=== PATIENT | female | born 1990 | race Two or more races ===

== ENCOUNTER 2019-08-04 10:53 | Observation (INO) | payer BC ==
[~2019-08-04] VITALS: Ht 170.2 cm; Wt 112.0 kg
[2019-08-04] MEDS ORDERED: PREN-96 PO (12:23)
[2019-08-04] MEDS ORDERED: ASPI-231 PO (12:24)
[2019-08-04 13:44] LABS: Basophils # (auto) 0.2 uL; Basophils % (auto) 1.4 % (0.0-2.0); Eosinophils # (auto) 0 uL; Eosinophils % (auto) 0.2 % (0.0-7.0); Hematocrit 35.5 % (36.0-46.0); Hemoglobin 11.9 g/dL (12.2-16.2); Lymphocytes # (auto) 1.3 uL; Lymphocytes % (auto) 11.5 % (10.0-50.0); Mean Corpuscular Hemoglobin 31.2 pg (28.0-32.0); Mean Corpuscular Hgb Conc. 33.5 g/dL (32.0-36.0); Monocytes # (auto) 0.5 uL; Monocytes % (auto) 4.4 % (0.0-12.0); Neutrophils # (auto) 9.4 uL; Neutrophils % (auto) 82.5 % (37.0-80.0); Platelet Count (auto) 252 10^3/uL (140-450); Red Blood Cells 3.81 10^6/uL (4.0-5.20); Red Cell Distribution Width 12.8 % (11.8-14.3); White Blood Cell 11.4 10^3/uL (4.4-10.8)
[2019-08-04 13:47] LABS: Urine Bacteria FEW /hpf (None Seen); Urine Blood Negative /uL (Negative); Urine Mucus FEW (None Seen); Urine Specific Gravity 1.017 (1.001-1.035); Urine WBC 1 /hpf (0 - 5)
[2019-08-04 14:00] LABS: INR < 0.93 (0.9-1.15); Partial Thromboplastin Time 24.6 sec (23.64-32.05)
[2019-08-04 14:08] LABS: Albumin 2.7 g/dL (3.4-5.0); Calcium 9.3 mg/dL (8.5-10.1); Potassium 3.8 mmol/L (3.5-5.1); Uric Acid 4.4 mg/dL (2.6-6.0)
[2019-08-04 14:12] LABS: BUN/Creatinine Ratio 17.4; Bilirubin, Total 0.1 mg/dL (0.2-1.0); Total Protein 7.1 g/dL (6.4-8.2)
== END 2019-08-04 14:50 | disposition home or self-care (01) | DRG 833 ==
LOC: LDRP 10:53
PROVIDERS: ADMIT Obstetrics & Gynecology; ATTEND Obstetrics & Gynecology
DX: O36.5930 Maternal care for other known or suspected poor fetal growth, third trimester, not applicable or unspecified (principal); O13.3 Gestational [pregnancy-induced] hypertension without significant proteinuria, third trimester; Z3A.35 35 weeks gestation of pregnancy
CPT/HCPCS: 36415; 59025; 76818; 80053; 81001; 81002; 84550; 85025; 85610; 85730; G0378

== ENCOUNTER 2019-08-08 09:23 | Observation (INO) | payer BC ==
[~2019-08-08 09:23] MED LIST: ASPI-231 PO; PREN-96 PO
[2019-08-08 15:35] LABS: Protein, Urine 13.1 mg/dL (0.0-11.9)
== END 2019-08-08 15:16 | disposition home or self-care (01) | DRG 951 ==
LOC: LDRP 13:18
PROVIDERS: ADMIT Specialist; ATTEND Specialist
DX: Z34.93 Encounter for supervision of normal pregnancy, unspecified, third trimester (principal); Z3A.35 35 weeks gestation of pregnancy
CPT/HCPCS: 59025; 76818; 81002; 84156; G0378

== ENCOUNTER 2019-08-12 14:51 | Observation (INO) | payer BC | END 2019-08-12 16:09 | disposition home or self-care (01) | DRG 833 | LOC: LDRP 14:51 | PROVIDERS: ADMIT Specialist; ATTEND Specialist | DX: O36.8330 Maternal care for abnormalities of the fetal heart rate or rhythm, third trimester, not applicable or unspecified (principal); Z3A.36 36 weeks gestation of pregnancy | CPT/HCPCS: 59025; 76818; 81002; G0378 ==

== ENCOUNTER 2019-08-16 14:25 | Observation (INO) | payer BC | END 2019-08-16 15:20 | disposition home or self-care (01) | DRG 833 | LOC: LDRP 14:25 | PROVIDERS: ADMIT Obstetrics & Gynecology; ATTEND Obstetrics & Gynecology | DX: O36.5993 Maternal care for other known or suspected poor fetal growth, unspecified trimester, fetus 3 (principal); O13.3 Gestational [pregnancy-induced] hypertension without significant proteinuria, third trimester; Z3A.37 37 weeks gestation of pregnancy | CPT/HCPCS: 59025; 76818; 81002; G0378 ==

== ENCOUNTER 2019-08-19 14:05 | Observation (INO) | payer BC ==
[~2019-08-19] VITALS: Ht 170.2 cm; Wt 114.8 kg
[2019-08-19] MEDS ORDERED: LABETALOL HCL 200 MG TAB PO ONE ×2 (15:00→15:30)
[2019-08-19 15:47] LABS: Basophils # (auto) 0 uL; Basophils % (auto) 0.1 % (0.0-2.0); Eosinophils # (auto) 0 uL; Eosinophils % (auto) 0.3 % (0.0-7.0); Hematocrit 36.3 % (36.0-46.0); Hemoglobin 12.4 g/dL (12.2-16.2); Lymphocytes # (auto) 1.6 uL; Lymphocytes % (auto) 15.4 % (10.0-50.0); Mean Corpuscular Hemoglobin 31.8 pg (28.0-32.0); Mean Corpuscular Hgb Conc. 34.1 g/dL (32.0-36.0); Mean Corpuscular Volume 93.3 fL (80.0-100.0); Monocytes # (auto) 0.6 uL; Monocytes % (auto) 5.9 % (0.0-12.0); Neutrophils # (auto) 8.3 uL; Neutrophils % (auto) 78.3 % (37.0-80.0); Nucleated Red Blood Cells % 0.1 %; Platelet Count (auto) 243 10^3/uL (140-450); Red Blood Cells 3.89 10^6/uL (4.0-5.20); Red Cell Distribution Width 12.6 % (11.8-14.3); White Blood Cell 10.5 10^3/uL (4.4-10.8)
[2019-08-19 15:54] LABS: Urine Bacteria MOD /hpf (None Seen); Urine Blood Negative /uL (Negative); Urine Mucus FEW (None Seen); Urine Specific Gravity 1.007 (1.001-1.035); Urine WBC 6 /hpf (0 - 5)
[2019-08-19 16:04] LABS: Albumin 2.6 g/dL (3.4-5.0); BUN/Creatinine Ratio 13.7; Potassium 4.1 mmol/L (3.5-5.1)
[2019-08-19 16:07] LABS: Bilirubin, Total 0.2 mg/dL (0.2-1.0); Total Protein 6.9 g/dL (6.4-8.2)
[2019-08-19 16:34] LABS: INR < 0.93 (0.9-1.15); Partial Thromboplastin Time 26.2 sec (23.64-32.05)
== END 2019-08-19 16:52 | disposition home or self-care (01) | DRG 833 ==
LOC: LDRP 14:05
PROVIDERS: ADMIT Obstetrics & Gynecology; ATTEND Obstetrics & Gynecology
DX: O13.3 Gestational [pregnancy-induced] hypertension without significant proteinuria, third trimester (principal); O36.5931 Maternal care for other known or suspected poor fetal growth, third trimester, fetus 1; Z3A.37 37 weeks gestation of pregnancy
CPT/HCPCS: 36415; 76818; 80053; 81001; 84550; 85025; 85379; 85610; 85730; G0378

== ENCOUNTER 2019-08-22 15:40 | Inpatient (IN) | payer BC ==
[~2019-08-22] VITALS: Ht 30.5 cm; Wt 0.9 kg
[2019-08-22] MEDS ORDERED: LABETALOL HCL 200 MG TAB PO ONE (16:00)
[2019-08-22 16:41] LABS: Urine Bacteria MOD /hpf (None Seen); Urine Blood Negative /uL (Negative); Urine Specific Gravity 1.006 (1.001-1.035); Urine WBC 8 /hpf (0 - 5)
[2019-08-22 16:48] LABS: Basophils # (auto) 0 uL; Basophils % (auto) 0.2 % (0.0-2.0); Eosinophils # (auto) 0.1 uL; Eosinophils % (auto) 0.5 % (0.0-7.0); Hematocrit 35.1 % (36.0-46.0); Hemoglobin 11.9 g/dL (12.2-16.2); Lymphocytes # (auto) 1.6 uL; Lymphocytes % (auto) 13.1 % (10.0-50.0); Mean Corpuscular Hemoglobin 31.6 pg (28.0-32.0); Monocytes # (auto) 0.5 uL; Monocytes % (auto) 3.9 % (0.0-12.0); Neutrophils % (auto) 82.3 % (37.0-80.0); Nucleated Red Blood Cells % 0.1 %; Platelet Count (auto) 232 10^3/uL (140-450); Red Blood Cells 3.78 10^6/uL (4.0-5.20); White Blood Cell 12.1 10^3/uL (4.4-10.8)
[2019-08-22 16:57] LABS: Albumin 2.5 g/dL (3.4-5.0); Calcium 8.6 mg/dL (8.5-10.1); Potassium 3.9 mmol/L (3.5-5.1); Uric Acid 4.4 mg/dL (2.6-6.0)
[2019-08-22 17:00] LABS: BUN/Creatinine Ratio 15.1; Bilirubin, Total 0.1 mg/dL (0.2-1.0)
[2019-08-22 17:27] LABS: INR < 0.93 (0.9-1.15); Partial Thromboplastin Time 26.2 sec (23.64-32.05)
[2019-08-22] MEDS ORDERED: LACTATED RINGER'S 1,000 ML IV SCH (17:33)
[2019-08-22] MEDS ORDERED: LACT. RINGERS/OXYTOCIN 20UNITS 1,000 ML IV SCH (17:33)
[2019-08-22] MEDS ORDERED: PHISODERM TOP SOLN 240ML BTL TOP PRN (17:45)
[2019-08-22] MEDS ORDERED: LIDOCAINE 2%HCL (LOCAL ANESTH.) INJ 20ML MDV ID ONE (17:45)
[2019-08-22] MEDS ORDERED: WITCH HAZEL-GLYCERIN PAD TOP PRN (17:45)
[2019-08-22] MEDS ORDERED: DERMOPLAST 60ML BOTTLE TOP PRN (17:45)
[2019-08-22 17:50] LABS: Alcohol, Urine < 3.0 mg/dL (0-5); Amphetamine Screen, Urine NEGATIVE (NEGATIVE); Barbiturate Scree,Urine NEGATIVE (NEGATIVE); Benzodiazephine Screen, Urine NEGATIVE (NEGATIVE); Cannabinoid Screen, Urine NEGATIVE (NEGATIVE); Cocaine Screen, Urine NEGATIVE (NEGATIVE); Opiate Scree,Urine NEGATIVE (NEGATIVE); Phencyclidine Screen, Urine NEGATIVE (NEGATIVE)
[2019-08-23] VITALS (8 sets, daily range): BP systolic 143–178; BP diastolic 73–98
[2019-08-23] MEDS: hydrALAZINE HCL 20 MG/ML VL IV PRN ×3 (01:53→20:51)
[2019-08-23] MEDS ORDERED: ACETAMINOPHEN 325 MG TAB PO ONE (03:30)
[2019-08-23 07:07] LABS: RPR Non Reactive (Non Reactive)
[2019-08-23] MEDS ORDERED: MAGNESIUM SULFATE 100 ML IV ONE (09:00)
[2019-08-23] MEDS: NALBUPHINE HCL 10 MG/1ml INJECTION IV PRN ×2 (09:48→15:10)
[2019-08-23] MEDS: MAGNESIUM SULFATE 40MG/ML 1,000 ML IV SCH ×2 (09:58→19:11)
[2019-08-23] MEDS ORDERED: PROMETHAZINE HCL 25 MG/ML 1ML IV SCH ×2 (12:00→18:00)
[2019-08-23] MEDS ORDERED: PROMETHAZINE HCL 25 MG/ML 1ML IM PRN (12:00)
[2019-08-23] MEDS ORDERED: ePHEDrine SULFATE 50 MG/ML AMP IV ONE (15:15)
[2019-08-23] MEDS ORDERED: fentaNYL W ROPIVACAINE 150 ML EPI SCH (15:15)
[2019-08-23] MEDS ORDERED: NALOXONE HCL 0.4 MG/ML VIAL IV ONE (15:15)
[2019-08-23] MEDS ORDERED: OXYTOCIN 10 UNIT/ML 10ML VIAL ONE (17:14)
[2019-08-23] MEDS ORDERED: fentaNYL CITRATE 100 MCG/2 ML VL ONE (17:14)
[2019-08-23] MEDS ORDERED: SUCCINYLCHOLINE CHLORIDE 20 MG/ML 10ML VIAL IV ONE (17:25)
[2019-08-23] MEDS ORDERED: PROMETHAZINE HCL 25 MG/ML 1ML IV PRN (18:00)
[2019-08-23] MEDS ORDERED: LACTATED RINGER'S 1,000 ML IV SCH (18:40)
[2019-08-23] MEDS ORDERED: HYDROmorphone HCL 2 MG/ML VL IV PRN ×2 (18:45)
[2019-08-23] MEDS ORDERED: ePHEDrine SULFATE 50 MG/ML AMP IV PRN (18:45)
[2019-08-23] MEDS ORDERED: ONDANSETRON HCL 4 MG/2 ML VIAL IV PRN ×2 (18:45)
[2019-08-23] MEDS ORDERED: ceFAZolin 1GM/50ML 50 ML IV SCH (18:45)
[2019-08-23] MEDS ORDERED: hydrALAZINE HCL 20 MG/ML VL IV PRN (18:45)
[2019-08-23] MEDS ORDERED: ACETAMINOPHEN IV 1000 MG/100ML (10MG/ML) IV ONE (18:54)
--- NOTE | 2019-08-23 19:30 | NUR ---
Post Op for LDRP: Received patient from Francy Bundy [employer] via bed to room . Patient A/A/Ox4, abdominal binder and bilateral SCD's are in place, IV fluids placed on pump and infusing per order, incisional site dressing clean/dry/intact and Galvin Catheter to gravity draining clear yellow urine. Incentive Spirometer at bedside and instruction on proper use with return demonstration done by patient.
--- NOTE | 2019-08-23 19:35 | NUR ---
Teaching: Reviewed information in [employer] Beginnings booklet with patient. Discussed benefits of and risks associated with not . Discussed different positions, proper latch, feeding cues, and baby-led . Provided information of medication side effects related to . All questions and concerns addressed at this time. Patient verbalized understanding of information. infant latched at this time.
--- NOTE | 2019-08-23 20:00 | NUR ---
Bottle-feeding Education: Patient encouraged to breastfeed. Benefits of and the risk of providing formula to was discussed. Patient verbalized understanding of the benefits and is aware of risk and insists on bottle-feeding. Formula provided and instruction on formula preperation from the [employer] Beginning booklet reviewed with patient.
--- NOTE | 2019-08-23 20:45 | NUR ---
upon fundal and lochia assesment, small clots noted with moderate lochia. Josette care provided. peripad changed, Will continue to monitor.
[2019-08-23] MEDS: ceFAZolin 1GM/50ML 50 ML IV SCH (21:54)
[2019-08-23] MEDS: HYDROmorphone HCL 2 MG/ML VL IV PRN (23:12)
[2019-08-23] MEDS ORDERED: ACETAMINOPHEN IV 1000 MG/100ML (10MG/ML) IV PRN (23:45)
[2019-08-24] VITALS (20 sets, daily range): BP systolic 117–144; BP diastolic 60–90
[2019-08-24] MEDS: HYDROmorphone HCL 2 MG/ML VL IV PRN ×6 (01:13→15:37)
[2019-08-24 05:35] LABS: Basophils # (auto) 0 uL; Eosinophils # (auto) 0 uL; Hemoglobin 8.8 g/dL (12.2-16.2); Lymphocytes # (auto) 1.2 uL; Lymphocytes % (auto) 6.5 % (10.0-50.0); Mean Corpuscular Hemoglobin 31.2 pg (28.0-32.0); Mean Corpuscular Hgb Conc. 33.7 g/dL (32.0-36.0); Mean Corpuscular Volume 92.5 fL (80.0-100.0); Monocytes # (auto) 0.7 uL; Monocytes % (auto) 3.6 % (0.0-12.0); Neutrophils % (auto) 89.9 % (37.0-80.0); Platelet Count (auto) 233 10^3/uL (140-450); Red Blood Cells 2.81 10^6/uL (4.0-5.20); Red Cell Distribution Width 13.1 % (11.8-14.3); White Blood Cell 18.9 10^3/uL (4.4-10.8)
[2019-08-24 05:55] LABS: Albumin 2.1 g/dL (3.4-5.0); Calcium 7.5 mg/dL (8.5-10.1); Potassium 4.2 mmol/L (3.5-5.1)
[2019-08-24 05:58] LABS: BUN/Creatinine Ratio 12.2; Bilirubin, Total 0.3 mg/dL (0.2-1.0); Total Protein 5.6 g/dL (6.4-8.2)
[2019-08-24] MEDS: ceFAZolin 1GM/50ML 50 ML IV SCH ×2 (06:00→13:55)
--- NOTE | 2019-08-24 07:00 | NUR ---
DTR'S 2+, RESP 16
--- NOTE | 2019-08-24 08:08 | NUR ---
0739 DR. SCHMIDT AT BEDSIDE AND STATES CONTINUE MAGNESIUM AT 2 GRAMS TILL 1911 HOUR TODAY. CALL WITH THERAPEUTIC MAG LEVELS. DR. SCHMIDT MADE AWARE HGB 8.8 MG/DL
--- NOTE | 2019-08-24 08:13 | NUR ---
DTR'S 2+, RESP 16
--- NOTE | 2019-08-24 09:00 | NUR ---
DTR'S 2+, RESP 16
--- NOTE | 2019-08-24 10:00 | NUR ---
DTR'S 2+, RESP 20
--- NOTE | 2019-08-24 11:00 | NUR ---
DTR'S 2+, RESP 20
[2019-08-24] MEDS: MAGNESIUM SULFATE 40MG/ML 1,000 ML IV SCH ×2 (11:15→17:18)
[2019-08-24] MEDS: LACTATED RINGER'S 1,000 ML IV SCH ×2 (11:15→17:18)
--- NOTE | 2019-08-24 12:00 | NUR ---
DTR'S 2+, RESP 16
--- NOTE | 2019-08-24 13:00 | NUR ---
DTR'S 2+, RESP 20
--- NOTE | 2019-08-24 14:00 | NUR ---
DTR'S 2+, RESP 16
--- NOTE | 2019-08-24 15:08 | NUR ---
DTR'S 2+, RESP 16
--- NOTE | 2019-08-24 15:40 | NUR ---
DR. SCHMIDT IN NURSING STATION AND AWARE OF THERAPEUTIC MAG LEVEL 4.3 AND STATES OK TO PUT 1ST DAY POST OP ORDERS IN. ORDERS CARRIED OUT. STOP MEDICATION MAGNESIUM 1 GRAM AT 1911 HOUR.
[2019-08-24] MEDS ORDERED: HYDROcodone-ACET 5/325MG TAB PO PRN (16:00)
[2019-08-24] MEDS ORDERED: BISACODYL 10 MG RECT SUPP PR PRN (16:00)
--- NOTE | 2019-08-24 16:00 | NUR ---
DTR'S 2+, RESP 16
--- NOTE | 2019-08-24 17:00 | NUR ---
DTR'S 2+, RESP 22
--- NOTE | 2019-08-24 18:00 | NUR ---
DTR'S 2+, RESP 20
--- NOTE | 2019-08-24 18:32 | NUR ---
BRAULIO SAN RN AT BEDSIDE TO VISUALIZE IV PUMP SETTINGS. MAG IS RUNNING AT 1 GRAM 25 ML/HR. BEDSIDE REPORT GIVEN
--- NOTE | 2019-08-24 19:11 | NUR ---
Magnesium DC'd per orders.
[2019-08-24] MEDS: SIMETHICONE 80 MG CHEWABLE TABLET PO SCH ×2 (19:20→22:13)
[2019-08-24] MEDS: HYDROcodone-ACET 5/325MG TAB PO PRN (19:22)
[2019-08-24] MEDS ORDERED: ACETAMINOPHEN IV 1000 MG/100ML (10MG/ML) IV PRN (20:15)
--- NOTE | 2019-08-24 21:30 | NUR ---
Ambulation: Surgical dressing removed, incision WNL, clean, dry and intact with well approximated edges and 12 rigoberto. Pericare performed, patient provided clean gown and peripad, underwear, and non-slip socks. Patient OOB with standby assistance by RN. Patient ambulated in florez with steady gait accompanied by RN. Bed linen changed. Patient ambulated back to bed with steady gait and no distress noted.
[2019-08-24] MEDS: DOCUSATE SOD 100 MG CAP PO SCH (22:12)
[2019-08-24] MEDS: FERROUS SULFATE 325 MG TAB PO SCH (22:12)
[2019-08-24] MEDS: IBUPROFEN 800 MG TAB PO PRN (22:15)
[2019-08-25] MEDS: HYDROcodone-ACET 5/325MG TAB PO PRN ×5 (00:03→19:50)
--- NOTE | 2019-08-25 00:09 | NUR ---
Bell catheter dc'd Order to discontinue bell catheter. Bell dc'd with clean technique following deflation of balloon. Patient tolerated well with no complaints of pain. Continue care.
--- NOTE | 2019-08-25 01:50 | NUR ---
VOID #1: Patient OOB independently, patient able to void 300ml clear urine. Quarter sized clots noted, will continue to monitor.
[2019-08-25 03:00] VITALS: BP 119/84
--- NOTE | 2019-08-25 05:11 | NUR ---
VOID #2: Patient OOB independently, patient able to void 400ml clear urine. Quarter sized clots noted, will continue to monitor.
[2019-08-25] MEDS: SIMETHICONE 80 MG CHEWABLE TABLET PO SCH ×4 (05:54→22:00)
[2019-08-25] MEDS: IBUPROFEN 800 MG TAB PO PRN ×3 (05:54→23:17)
--- NOTE | 2019-08-25 06:15 | NUR ---
REPORT RECEIVED FROM JACQUELINE NGUYEN RN. WILL RESUME CARE OF PT.
[2019-08-25 06:55] VITALS: BP 144/87
[2019-08-25] MEDS: FERROUS SULFATE 325 MG TAB PO SCH ×2 (09:48→22:00)
[2019-08-25] MEDS: DOCUSATE SOD 100 MG CAP PO SCH ×2 (09:48→19:50)
[2019-08-25] MEDS ORDERED: DOCUSATE CALCIUM 240 MG CAP PO SCH (10:00)
[2019-08-25 11:00] VITALS: BP 125/72
[2019-08-25 15:00] VITALS: BP 130/78
--- NOTE | 2019-08-25 16:30 | NUR ---
IV removal LAC IV DC'd with clean sterile technique, catheter fully intact. Pressure dressing applied to site. Patient tolerated well. LW IV INTACT AND PATENT.
--- NOTE | 2019-08-25 17:00 | NUR ---
HEART RATE 113. REASSESS.
--- NOTE | 2019-08-25 17:30 | NUR ---
HR MD SCHMIDT MADE AWARE AND STATES TO ORDER CBC STAT.
[2019-08-25 18:09] LABS: Basophils # (auto) 0 uL; Basophils % (auto) 0.1 % (0.0-2.0); Eosinophils # (auto) 0.1 uL; Lymphocytes # (auto) 1.7 uL
[2019-08-25 18:14] LABS: Eosinophils % (auto) 0.6 % (0.0-7.0); Hematocrit 22.9 % (36.0-46.0); Hemoglobin 7.5 g/dL (12.2-16.2); Lymphocytes % (auto) 11.2 % (10.0-50.0); Mean Corpuscular Hemoglobin 31.1 pg (28.0-32.0); Mean Corpuscular Hgb Conc. 32.8 g/dL (32.0-36.0); Monocytes # (auto) 0.7 uL; Monocytes % (auto) 4.9 % (0.0-12.0); Neutrophils # (auto) 12.6 uL; Neutrophils % (auto) 83.2 % (37.0-80.0); Platelet Count (auto) 223 10^3/uL (140-450); Red Blood Cells 2.41 10^6/uL (4.0-5.20); Red Cell Distribution Width 13.5 % (11.8-14.3); White Blood Cell 15.1 10^3/uL (4.4-10.8)
[2019-08-25 18:52] VITALS: BP 127/76
[2019-08-25 23:15] VITALS: BP 129/67
[2019-08-26] MEDS: HYDROcodone-ACET 5/325MG TAB PO PRN ×2 (00:47→05:30)
[2019-08-26 03:00] VITALS: BP 125/79
[2019-08-26] MEDS: SIMETHICONE 80 MG CHEWABLE TABLET PO SCH (05:32)
[2019-08-26 07:00] VITALS: BP 117/79
--- NOTE | 2019-08-26 09:00 | NUR ---
orders received from CNM to call in prescription or iron 325 bid number [phone]. prescription called into [facility] at [phone] . pt notified of picking up prescription from [facility] pharmacy. pt verbalized understanding
--- NOTE | 2019-08-26 09:15 | NUR ---
Discharge: Discharge instructions given as ordered. Pt encouraged to follow up with [employer] as instructed. All questions and concerns addressed. Patient verbalized understanding. Medication reconciliation completed and copy given to patient. Patient encouraged to prepare to depart unit.
--- NOTE | 2019-08-26 09:40 | NUR ---
Discharge: Patient taken to vehicle via wheelchair with all personal belongings, accompanied by staff and family member. No distress noted at time of departure, no adverse changes in status since initial assessment.
== END 2019-08-26 09:40 | disposition home or self-care (01) | DRG 788 ==
LOC: LDRP 15:40 → OBSVTOIN 17:45 → LDRP 18:03
PROVIDERS: ADMIT Specialist; ATTEND Specialist
PROC: 10D00Z1 Extraction of Products of Conception, Low, Open Approach (ICD-10-PCS; principal; 2019-08-23 17:21)
DX: O14.14 Severe pre-eclampsia complicating childbirth (principal); O61.9 Failed induction of labor, unspecified; O99.02 Anemia complicating childbirth; D64.9 Anemia, unspecified; O62.0 Primary inadequate contractions; O36.5930 Maternal care for other known or suspected poor fetal growth, third trimester, not applicable or unspecified; O99.214 Obesity complicating childbirth; E66.9 Obesity, unspecified; Z37.0 Single live birth; Z3A.38 38 weeks gestation of pregnancy
CPT/HCPCS: 36415; 51702; 59025; 62282; 80053; 80307; 81001; 81002; 83735; 84112; 84550; 85025; 85610; 85730; 86592; 86850; 86900; 86901; 96361; 96366; 96375; G0378; J0131; J0330; J0690; J2590; J3010